=== PATIENT | male | born 1955 | race Caucasian/White ===

== ENCOUNTER 2021-02-05 13:48 | Emergency (ER) | payer MEDICARE ==
[~2021-02-05 13:48] MED LIST: ACETAMINOPHEN-1 EAC1 PO; ALPRAZOLAM0.5 MG PO; CO Q-10100 MG PO; CORDARONE 200M200 MG PO; COREG 12.5MG12.5 MG PO; ECOTRIN81 MG PO; FISH OIL + D31 EACH PO; FISH OIL 1,0001 EACH PO; GLUCOPHAGE850 MG PO; IMDUR ER TAB 3030 MG PO; LEVAQUIN PO; LEVOTHYROXINE50 MCG PO; MILK THISTLE175 M1 PO; PRAVACHOL40 MG PO; THERAGRAN M TAB1 EA PO; ZESTRIL40 MG PO
[2021-02-05] MEDS ORDERED: PREDNISONE 20 M20 MG PO (15:19)
== END 2021-02-05 15:35 | disposition home or self-care (01) ==
LOC: ER1 13:48
DX: T63.461A Toxic effect of venom of wasps, accidental (unintentional), initial encounter (principal); I25.10 Atherosclerotic heart disease of native coronary artery without angina pectoris; I10 Essential (primary) hypertension; E11.9 Type 2 diabetes mellitus without complications; E78.5 Hyperlipidemia, unspecified; Z91.030 Bee allergy status
CPT/HCPCS: 99281

== ENCOUNTER → 2021-06-07 | Outpatient (CLI) | payer OTHER ==
[~2021-06-07] MED LIST changes: +PREDNISONE 20 M20 MG PO
== END ==
LOC: KOH-I 10:41
DX: M47.812 Spondylosis without myelopathy or radiculopathy, cervical region (principal); M25.511 Pain in right shoulder; M19.011 Primary osteoarthritis, right shoulder
CPT/HCPCS: 72040; 73030

== ENCOUNTER → 2021-10-22 | Outpatient (CLI) | payer MEDICARE | LOC: HEART 5 08:57 | DX: R06.02 Shortness of breath (principal); Z79.899 Other long term (current) drug therapy; Z87.891 Personal history of nicotine dependence | CPT/HCPCS: 94060; 94729 ==

== ENCOUNTER → 2022-02-28 | Outpatient (CLI) | payer MEDICARE | LOC: KOH-I 08:00 | DX: Z87.891 Personal history of nicotine dependence (principal) | CPT/HCPCS: 71271 ==